=== PATIENT | male | born 1955 | race Caucasian/White ===

== ENCOUNTER 2017-07-18 07:05 | Emergency (ER) | payer BC ==
[2017-07-18] MEDS ORDERED: Sodium Chloride 0.9% 1,000 ML IV ONE (07:39)
--- NOTE | 2017-07-18 07:46 | EDM.PDOC ---
ED HPI GENERAL MEDICAL PROBLEM - General Chief Complaint: Abdominal Pain Stated Complaint: RT SIDE PAIN Time Seen by Provider: 07/18/17 07:20 Source of Information: Reports: Patient, Family History Limitations: Reports: No Limitations - History of Present Illness INITIAL COMMENTS - FREE TEXT/NARRATIVE: c/o RLQ pain x 24h c/o malaise, gas and flu-like sxs playing golf 2d ago, went to bed when he got home yesterday he had pain in his RLQ, persisted, better today has been sweaty intermittently x 24h, no fever inc'd pain with ambulation, no change with BM, last BM at 3 AM no prior abd surgery, colonoscopy reported neg had prostatectomy 1y ago for prostate CA, peak PSA 26, last PSA 0.05, bony mets , had RT and injections x 5, seen at [place] in f/u 1w ago no n/v, dec'd appetitie Right Lower Abdomen Pain Score (Numeric/FACES): 2 - Related Data Allergies Allergy/AdvReac Type Severity Reaction Status Date / Time No Known Allergies Allergy Verified 07/18/17 07:41 Home Meds: Home Meds Aspirin [Jeff Aspirin] 81 mg PO DAILY 07/18/17 [History] Ciprofloxacin HCl [Cipro] 500 mg PO BID #14 tablet 07/18/17 [Rx] Hydrochlorothiazide 25 mg PO DAILY 07/18/17 [History] Leuprolide [Lupron Depot 3-Month] 22.5 mg IM Q3M 07/18/17 [History] Losartan [Cozaar] 100 mg PO DAILY 07/18/17 [History] Potassium Chloride 20 meq PO BID #6 tab.er.prt 07/18/17 [Rx] atorvaSTATin [Lipitor] 20 mg PO BEDTIME 07/18/17 [History] metroNIDAZOLE [Flagyl] 500 mg PO TID #21 tab 07/18/17 [Rx] ED ROS GENERAL - Review of Systems Review Of Systems: See Below Constitutional: Reports: Malaise, Fatigue, Diaphoresis, Decreased Appetite. Denies: Fever HEENT: Reports: No Symptoms Respiratory: Reports: No Symptoms Cardiovascular: Reports: No Symptoms Endocrine: Reports: No Symptoms GI/Abdominal: Reports: Abdominal Pain. Denies: Constipation, Diarrhea, Nausea, Vomiting : Reports: No Symptoms Musculoskeletal: Reports: No Symptoms Skin: Reports: No Symptoms Neurological: Reports: No Symptoms Psychiatric: Reports: No Symptoms Hematologic/Lymphatic: Reports: No Symptoms Immunologic: Reports: No Symptoms ED EXAM, GI/ABD - Physical Exam Exam: See Below Exam Limited By: No Limitations General Appearance: Alert, WD/WN, Other (mildly fatigued) Ears: Normal External Exam, Normal Canal, Hearing Grossly Normal, Normal TMs Nose: Normal Inspection, Normal Mucosa, No Blood Throat/Mouth: Normal Inspection, Normal Lips, Normal Teeth, Normal Gums, Normal Oropharynx, Normal Voice, No Airway Compromise Head: Atraumatic, Normocephalic Neck: Normal Inspection, Supple, Non-Tender, Full Range of Motion Respiratory/Chest: No Respiratory Distress, Lungs Clear, Normal Breath Sounds, No Accessory Muscle Use, Chest Non-Tender Cardiovascular: Regular Rate, Rhythm, No Edema, No Gallop, No Murmur, No Rub GI/Abdominal Exam: Other (good BS throughout, perhaps a little less in RLQ, no guard, no rebound, does have 1+ tender to deep palp in RLQ, NT to light palp) Back Exam: Normal Inspection, Full Range of Motion. No: CVA Tenderness (R), CVA Tenderness (L) Extremities: Normal Inspection, Normal Range of Motion, Non-Tender Neurological: Alert, Oriented, CN II-XII Intact, Normal Cognition, No Motor/ Sensory Deficits Psychiatric: Normal Affect, Normal Mood Skin Exam: Intact, Normal Color, No Rash, Other (skin cool and clammy) Lymphatic: No Adenopathy Course - Vital Signs Last Recorded V/S: Last Vital Signs Temp 36.4 C 07/18/17 11:04 Pulse 62 07/18/17 11:04 Resp 18 07/18/17 11:04 BP 134/74 07/18/17 11:04 Pulse Ox 99 07/18/17 11:04 - Orders/Labs/Meds Orders: Active Orders 24 hr Category Date Time Status Abdomen Pelvis w Cont [CT] Stat Exams 07/18/17 07:39 Taken URINALYSIS W/MICROSCOPIC [UA W/MICROSCOPIC] [URIN] Stat Lab 07/18/17 07:27 Ordered Diatrizoate Nishi/Diatrizoate Na [Gastrografin 37%] Med 07/18/17 09:45 Active 30 ml PO . DIRECTED NS + KCl 20mEq/L [Normal Saline with 20 mEq KCl] 1,000 Med 07/18/17 09:00 Active ml IV ASDIRECTED Sodium Chloride 0.9% [Saline Flush] Med 07/18/17 08:11 Active 10 ml FLUSH ASDIRECTED PRN Saline Lock Insert [OM.PC] Routine Oth 07/18/17 08:11 Ordered Medication Orders Diatrizoate Meglum/Diatrizoate Sod (Gastrografin 37%) 30 ml PO . DIRECTED DOMI Last Admin: 07/18/17 09:46 Dose: 30 ml Potassium Chloride/Sodium Chloride (Normal Saline With 20 Meq Kcl) 1,000 mls @ 500 mls/hr IV ASDIRECTED DOMI Last Admin: 07/18/17 09:12 Dose: 500 mls/hr Sodium Chloride (Saline Flush) 10 ml FLUSH ASDIRECTED PRN PRN Reason: Keep Vein Open Last Admin: 07/18/17 08:12 Dose: 10 ml Labs: Laboratory Tests 07/18/17 07/18/17 07/18/17 Range/Units 07:27 07:55 07:55 WBC 10.8 (4.5-12.0) X10-3/uL RBC 4.92 (4.30-5.75) x10(6)uL Hgb 15.8 H (11.5-15.5) g/dL Hct 47.3 (30.0-51.3) % MCV 96.3 H (80-96) fL MCH 32.2 (27.7-33.6) pg MCHC 33.4 (32.2-35.4) g/dL RDW 13.2 (11.5-15.5) % Plt Count 265 (125-369) X10(3)uL MPV 8.0 (7.4-10.4) fL Neut % (Auto) 80.9 (46-82) % Lymph % (Auto) 10.8 L (13-37) % Alfalfa % (Auto) 5.7 (4-12) % Eos % (Auto) 1 (1.0-5.0) % Baso % (Auto) 1 (0-2) % Neut # (Auto) 8.7 H (1.6-8.3) # Lymph # (Auto) 1.2 (0.6-5.0) # Alfalfa # (Auto) 0.6 (0.0-1.3) # Eos # (Auto) 0.2 (0.0-0.8) # Baso # (Auto) 0.1 (0.0-0.2) # Sodium 139 (135-145) mmol/L Potassium 3.4 L (3.5-5.3) mmol/L Chloride 100 (100-110) mmol/L Carbon Dioxide 27 (21-32) mmol/L BUN 18 (7-18) mg/dL Creatinine 1.4 H (0.70-1.30) mg/dL Est Cr Clr Drug Dosing TNP Estimated GFR (MDRD) 51 L (>60) BUN/Creatinine Ratio 12.9 (9-20) Glucose 153 H (80-116) mg/dL Calcium 9.5 (8.6-10.2) mg/dL Total Bilirubin 0.8 (0.1-1.3) mg/dL AST 23 (5-25) IU/L ALT 37 H (12-36) U/L Alkaline Phosphatase 83 (56-112) IU/L C-Reactive Protein (0.5-0.9) mg/dL Total Protein 8.3 H (6.0-8.0) g/dL Albumin 4.0 (3.2-4.6) g/dL Globulin 4.3 g/dL Albumin/Globulin Ratio 0.9 Urine Color Yellow (YELLOW) Urine Appearance Clear (CLEAR) Urine pH 6.0 (5.0-6.5) Ur Specific [place] 1.020 (1.010-1.025) Urine Protein 30 H (NEGATIVE) mg/dL Urine Glucose (UA) Normal (NEGATIVE) mg/dL Urine Ketones 15 H (NEGATIVE) mg/dL Urine Occult Blood Negative (NEGATIVE) Urine Nitrite Negative (NEGATIVE) Urine Bilirubin Small H (NEGATIVE) Urine Urobilinogen 4 H (NEGATIVE) mg/dL Ur Leukocyte Esterase Negative (NEGATIVE) Urine WBC 0-5 (0) Ur Squamous Epith Cells Occasional (NS,R,O) Urine Bacteria Few H (NS) 07/18/17 Range/Units 07:55 WBC (4.5-12.0) X10-3/uL RBC (4.30-5.75) x10(6)uL Hgb (11.5-15.5) g/dL Hct (30.0-51.3) % MCV (80-96) fL MCH (27.7-33.6) pg MCHC (32.2-35.4) g/dL RDW (11.5-15.5) % Plt Count (125-369) X10(3)uL MPV (7.4-10.4) fL Neut % (Auto) (46-82) % Lymph % (Auto) (13-37) % Alfalfa % (Auto) (4-12) % Eos % (Auto) (1.0-5.0) % Baso % (Auto) (0-2) % Neut # (Auto) (1.6-8.3) # Lymph # (Auto) (0.6-5.0) # Alfalfa # (Auto) (0.0-1.3) # Eos # (Auto) (0.0-0.8) # Baso # (Auto) (0.0-0.2) # Sodium (135-145) mmol/L Potassium (3.5-5.3) mmol/L Chloride (100-110) mmol/L Carbon Dioxide (21-32) mmol/L BUN (7-18) mg/dL Creatinine (0.70-1.30) mg/dL Est Cr Clr Drug Dosing Estimated GFR (MDRD) (>60) BUN/Creatinine Ratio (9-20) Glucose (80-116) mg/dL Calcium (8.6-10.2) mg/dL Total Bilirubin (0.1-1.3) mg/dL AST (5-25) IU/L ALT (12-36) U/L Alkaline Phosphatase (56-112) IU/L C-Reactive Protein 16.9 H* (0.5-0.9) mg/dL Total Protein (6.0-8.0) g/dL Albumin (3.2-4.6) g/dL Globulin g/dL Albumin/Globulin Ratio Urine Color (YELLOW) Urine Appearance (CLEAR) Urine pH (5.0-6.5) Ur Specific [place] (1.010-1.025) Urine Protein (NEGATIVE) mg/dL Urine Glucose (UA) (NEGATIVE) mg/dL Urine Ketones (NEGATIVE) mg/dL Urine Occult Blood (NEGATIVE) Urine Nitrite (NEGATIVE) Urine Bilirubin (NEGATIVE) Urine Urobilinogen (NEGATIVE) mg/dL Ur Leukocyte Esterase (NEGATIVE) Urine WBC (0) Ur Squamous Epith Cells (NS,R,O) Urine Bacteria (NS) Meds: Medications Generic Name Dose Route Start Last Admin Trade Name Freq PRN Reason Stop Dose Admin Diatrizoate Meglum/Diatrizoate Sod 30 ml 07/18/17 09:45 07/18/17 09:46 Gastrografin 37% PO 30 ml . DIRECTED DOMI Administration Potassium Chloride/Sodium Chloride 1,000 mls @ 500 mls/hr 07/18/17 09:00 09:12 Normal Saline With 20 Meq Kcl IV 500 mls/hr ASDIRECTED DOMI Administration Sodium Chloride 10 ml 07/18/17 08:11 07/18/17 08:12 Saline Flush FLUSH 10 ml ASDIRECTED PRN Administration Keep Vein Open Discontinued Medications Generic Name Dose Route Start Last Admin Trade Name Freq PRN Reason Stop Dose Admin Sodium Chloride 1,000 mls @ 999 mls/hr 07/18/17 07:39 07/18/17 08:09 Normal Saline IV 07/18/17 08:39 999 mls/hr .BOLUS ONE Administration Iopamidol 100 ml 07/18/17 09:34 07/18/17 09:46 Isovue-370 (76%) IV 07/18/17 09:35 100 ml . DIRECTED ONE Administration - Re-Assessments/Exams Free Text/Narrative Re-Assessment/Exam: 07/18/17 11:53 CRP 16.9, no baseline, unclear how much is related to his known prostate CA with bony mets and how much is acute creat 1.4 and ketones 15 mg/dl c/w dehydration feeling much better after 2 liters NS, abd still mildly tender at RLQ to deep palpation but less so then before, moving easily, in better spirits K 3.4, given KCl 20 meq IV, will give oral replacement x 3d as well WBC 10.8 and segs 80.9%, at ULN, c/w inflammation vs infection CT abd/pelvis with IV and PO contrast showing thickening of wall of R colon with fat stranding, no abscess, no diverticulitis, no appendicitis, does have diverticuli in sigmoid colon colitis likely infectious (diaphoresis, malaise, borderline inc'd WBC/segs, marked inc'd CRP), may be inflammatory, no clinical concern for ischemia Departure - Departure Time of Disposition: 12:00 Disposition: Home, Self-Care 01 Condition: Good Clinical Impression: Colitis, RLQ abdominal pain, Dehydration, Diaphoresis, Left shift, Hypokalemia - Discharge Information Prescriptions: Ciprofloxacin HCl [Cipro] 500 mg PO BID #14 tablet metroNIDAZOLE [Flagyl] 500 mg PO TID #21 tab Potassium Chloride 20 meq PO BID #6 tab.er.prt Instructions: Colitis, Dehydration, Adult, Rehydration, Adult, Hypokalemia Referrals: Sheldon Weeks MD [Physician] - Forms: ED Department Discharge Additional Instructions: For infection, take ciprofloxacin 500 mg 1 tab 2 times a day for 7 days. Two doses today. For infection, take metronidazole 500 mg 1 tab 3 times a day for 7 days. No alcohol. Increase fluids, 2 liters daily without caffeine. To clean out the bowels, drink a 10-ounce bottle of magnesium citrate today. For pain and cramping and inflammation, take ibuprofen 200 mg 3 tabs and acetaminophen 500 mg 2 tabs with meals and bedtime today and tomorrow. Eat a low fat diet for the next several days. To replace potassium, take potassium 20 meq 1 tab 2 times a day for 3 days. Collect stool samples and bring into lab. No work today. No work tomorrow unless you are feeling much better. See Dr Coronado in 5 days. However, return to ED if you are feeling worse or are not much better in 2 days. Obtain blood work (CBC, BMP, CRP) prior to see Dr Coronado. You will need a colonoscopy in one month, which Dr Coronado can schedule. Call your Physician or Return to Emergency Department if: * Your condition worsens in any way. * You develop fever greater than 100.4. * You have vomitting that does not stop with medications. * You have pain that is not controlled with medications. - My Orders Last 24 Hours: My Active Orders 07/18/17 07:27 URINALYSIS W/MICROSCOPIC [UA W/MICROSCOPIC] [URIN] Stat 07/18/17 07:39 Abdomen Pelvis w Cont [CT] Stat 07/18/17 08:11 Sodium Chloride 0.9% [Saline Flush] 10 ml FLUSH ASDIRECTED PRN Saline Lock Insert [OM.PC] Routine 07/18/17 09:00 NS + KCl 20mEq/L [Normal Saline with 20 mEq KCl] 1,000 ml IV ASDIRECTED 07/18/17 09:45 Diatrizoate Nishi/Diatrizoate Na [Gastrografin 37%] 30 ml PO . DIRECTED - Assessment/Plan Last 24 Hours: My Active Orders 07/18/17 07:27 URINALYSIS W/MICROSCOPIC [UA W/MICROSCOPIC] [URIN] Stat 07/18/17 07:39 Abdomen Pelvis w Cont [CT] Stat 07/18/17 08:11 Sodium Chloride 0.9% [Saline Flush] 10 ml FLUSH ASDIRECTED PRN Saline Lock Insert [OM.PC] Routine 07/18/17 09:00 NS + KCl 20mEq/L [Normal Saline with 20 mEq KCl] 1,000 ml IV ASDIRECTED 07/18/17 09:45 Diatrizoate Nishi/Diatrizoate Na [Gastrografin 37%] 30 ml PO . DIRECTED
[2017-07-18] MEDS ORDERED: Sodium Chloride 0.9% 10 ML Syringe FLUSH PRN (08:11)
[2017-07-18] MEDS ORDERED: NS + KCl 20mEq/L 1,000 ML IV SCH (09:00)
[2017-07-18] MEDS ORDERED: Iopamidol 755 Mg/ML 100 ML Bottle IV ONE (09:34)
[2017-07-18] MEDS ORDERED: Diatrizoate Meglumine/Diatrizoate Sodium 37% 30 ML Bottle PO SCH (09:45)
--- NOTE | 2017-07-19 08:04 | CT ---
INDICATION: Right lower quadrant pain times 24 hours, history of prostate CA with bony mets, radiation therapy [address] ABDOMEN AND PELVIS WITH CONTRAST: Spiral 2.5 mm axial sections were obtained through the abdomen and pelvis with 100 mL Isovue 370 at 2.5 mL/ second. Oral contrast was also utilized. Current study is 07/18/2017 and is compared with 05/10/2016. Total exam DLP = 1,268.94 mGy-cm There appear to be some subsegmental atelectatic changes in the lower lobes bilaterally - minimal areas of patchy pneumonia are difficult to entirely exclude with this appearance. No pericardial effusion was seen. The heart did not appear to be grossly enlarged but did appear to be near the upper limits of normal in size. There is fairly prominent thickening of the wall of the ascending colon. Pericolonic fat stranding is noted. No abscess formation was seen. Findings may be on the basis of colitis. Other inflammatory process such as infection cannot be excluded. The appendix appeared normal and is visualized on coronal images #39 through # 45. The remainder of the colon had a normal appearance, except for diverticulosis of the sigmoid colon without definite evidence of diverticulitis. No evidence of obstructive uropathy was seen. No gross mass lesions or calculi were identified. There is some minimal renal cortical scarring present. The adrenal glands, liver, and spleen appeared essentially normal; no significant lesions identified with only a few tiny low density lesions seen in the liver, likely representing simple cystic structures. No gallstones were demonstrated. No retroperitoneal mass was identified. Minimal retroperitoneal lymphadenopathy is noted. Minimal calcifications are noted in the aorta. A few small sclerotic lesions were noted, compatible with previous bony metastatic deposits. Degenerative changes and disk disease are noted at the L5-S1 level with vacuum disk phenomenon and relatively mild to moderate hypertrophic degenerative changes. The urinary bladder had a normal appearance. Prostate is absent, compatible with prostatectomy. No additional mass lesions, organomegaly, or free fluid collections were identified in the abdomen or pelvis. IMPRESSION: 1. Fairly marked thickening of the wall of the ascending colon with pericolonic fat stranding. Findings suggest fairly severe colitis in that area of indeterminate etiology. Direct visualization - endoscopy may be warranted, depending upon clinical correlation. 2. No definite evidence of progressive metastatic disease process with only a few blastic metastatic deposits noted. 3. Probable ASHD. 4. Subsegmental atelectatic changes suggested in the lower lobes - difficult to entirely exclude minimal patchy bronchopneumonia. 5. Degenerative changes and disk disease L5-S1. 6. Sigmoid diverticulosis is noted without evidence of diverticulitis. 7 . Mild ASD is noted. 8. Post prostatectomy. Report was called to Dr. Kingston at 1113 hours on 07/18/2017. [facility] [place]
== END 2017-07-18 12:15 | disposition home or self-care (01) ==
LOC: FB.ED 07:05
DX: K52.9 Noninfective gastroenteritis and colitis, unspecified (principal); E86.0 Dehydration; E87.6 Hypokalemia; R61 Generalized hyperhidrosis; Z79.82 Long term (current) use of aspirin
CPT/HCPCS: 36415; 74177; 80053; 81001; 85025; 86140; 96361; 96365; 96366; 99284; J3480; J7030; J7050; Q9963; Q9967